=== PATIENT | male | born 2000 | race Two or more races ===

== ENCOUNTER 2023-08-04 14:18 | Emergency (ER) | payer OTHER ==
[~2023-08-04] VITALS: Ht 172.7 cm; Wt 94.5 kg
[2023-08-04 14:31] VITALS: BP 98/58; PULSE 83; RESP 16; TEMP 98.1
[2023-08-04] MEDS: CLINDAMYCIN HCL 150 MG CAPSULE PO ONE (17:44)
[2023-08-04] MEDS: IBUPROFEN 400 MG TABLET PO ONE (17:44)
[2023-08-04] MEDS: CIPROFLOXACIN HCL 250 MG TABLET PO ONE (17:45)
[2023-08-04] MEDS: BACITRACIN 0.9 GM PACKET OINTMENT TP ONE (17:45)
[2023-08-04] MEDS: PERTUSS(ACELL),DIPH,TET/PF 0.5 ML SYRINGE [ADULT] IM. ONE (17:46)
[2023-08-04] MEDS: RABIES VACCINE, HUMAN DIPLOID/PF 2.5 UNITS/ML VIAL IM. ONE (17:46)
[2023-08-04] MEDS: RABIES IMMUNE GLOBULIN/PF 150 UNIT/ML 10 ML VIAL IM. ONE (17:47)
[2023-08-04] MEDS ORDERED: CIPR500T10 PO (17:48)
[2023-08-04] MEDS ORDERED: CLIN300C58 PO (17:48)
== END 2023-08-04 18:27 | disposition home or self-care (01) ==
LOC: EMS 14:20
DX: S61.451A Open bite of right hand, initial encounter (principal); K21.9 Gastro-esophageal reflux disease without esophagitis; Z88.0 Allergy status to penicillin; W54.0XXA Bitten by dog, initial encounter; Y93.89 Activity, other specified; Y92.89 Other specified places as the place of occurrence of the external cause; Y99.8 Other external cause status
CPT/HCPCS: 90375; 90471; 90675; 90715; 99284